=== PATIENT | male | born 2000 | race Asian ===

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

== ENCOUNTER 2020-02-25 08:22 | Outpatient (CLI) | payer MEDICAID, SELFPAY ==
--- NOTE | 2020-02-25 10:01 | DI.RAD_ITS ---
EXAM: XR CHEST 2V PA LATERAL CLINICAL HISTORY: SPRAIN OF RIBS, S23.41XA; CHEST PAIN, R07.9 TECHNIQUE: 2D digital imaging was performed. COMPARISON: CR XR CHEST 2V PA LATERAL from 02/23/2019 FINDINGS: MEDIASTINUM: Normal. HEART: Normal. PULMONARY VASCULATURE: Normal. LUNGS: Clear. PLEURAL SPACE: No pleural effusion or pneumothorax. BONE:Normal. OTHER FINDINGS:Normal. IMPRESSION: No acute pulmonary findings. DATA REPOSITORY: RADIATION DOSE DELIVERED:
== END 2020-02-25 08:42 ==
PROVIDERS: PCP Naturopath; Visit Provider Naturopath
DX: S23.41XA Sprain of ribs, initial encounter (principal); R07.9 Chest pain, unspecified
CPT/HCPCS: 71046

== ENCOUNTER 2020-07-09 02:57 | Outpatient (CLI) | payer MEDICAID, SELFPAY ==
[2020-07-12 07:11] LABS: Carboxy-THC Interpretation Positive.; Delta-9 CarboxyThc by LC-MS/MS 20 ng/mL (Cutoff:<3)
== END 2020-07-09 02:58 | disposition home or self-care (01) ==
LOC: LBO 02:57
PROVIDERS: PCP Naturopath; Visit Provider Naturopath
DX: R53.83 Other fatigue (principal); Z02.83 Encounter for blood-alcohol and blood-drug test
CPT/HCPCS: 80349

== ENCOUNTER 2020-08-08 16:28 | Outpatient (REF) | payer MEDICAID, SELFPAY ==
[2020-08-12 12:57] LABS: Carboxy-THC Interpretation Negative.; Delta-9 CarboxyThc by LC-MS/MS Negative ng/mL (Cutoff:<3)
== END 2020-08-08 16:29 | disposition home or self-care (01) ==
LOC: NCHCN 16:28
PROVIDERS: PCP Naturopath; Visit Provider Naturopath
DX: R53.83 Other fatigue (principal); Z02.83 Encounter for blood-alcohol and blood-drug test
CPT/HCPCS: 80349